=== PATIENT | male | born 1955 | race Caucasian/White ===

== ENCOUNTER 2023-01-26 07:01 | Day surgery (SDC) | payer MEDICARE, MEDICAID ==
[2023-01-23 17:12] LABS: BASOPHILS # (AUTO) 0.1 X10'3 (0-0.2); BASOPHILS % (AUTO) 0.7 % (0-1); EOSINOPHILS # (AUTO) 0.1 X10'3 (0-0.9); EOSINOPHILS % (AUTO) 1.7 % (0-6); LYMPHOCYTES # (AUTO) 2.3 X10'3 (1.1-4.8); LYMPHOCYTES % (AUTO) 29.9 % (21-51); MEAN CORPUSCULAR HEMOGLOBIN 33.6 PG (27.0-31.0); MEAN CORPUSCULAR HGB CONC 33.9 g/dL (33.0-36.5); MEAN PLATELET VOLUME 8.5 FL (7.4-10.4); MONOCYTES # (AUTO) 0.8 X10'3 (0-0.9); MONOCYTES % (AUTO) 9.9 % (2-12); NEUTROPHILS # (AUTO) 4.5 X10'3 (1.8-7.7); NEUTROPHILS % (AUTO) 57.8 % (42-75); PRE OP HEMATOCRIT 43.2 % (42.0-52.0); PRE OP HEMOGLOBIN 14.7 g/dL (14.0-17.9); PRE OP PLATELET COUNT 323 X10'3 (140-440); PRE OP WHITE BLOOD COUNT 7.7 10'3 (4.8-10.8); RED BLOOD COUNT 4.37 X10'6 (4.70-6.10)
[2023-01-23 17:26] LABS: ALBUMIN/GLOBULIN RATIO 1.1 (1.1-1.5); ALKALINE PHOSPHATASE 77 IU/L (46-116); BLOOD UREA NITROGEN 12 MG/DL (7-18); BUN/CREATININE RATIO 11.5 (10.0-20.0); CALCIUM 10.1 MG/DL (8.5-10.1); CHLORIDE 101 MMOL/L (99-107); CREATININE 1.04 MG/DL (0.60-1.10); PRE OP ALT 50 U/L (30-65); PRE OP ANION GAP 10 (8-16); PRE OP AST 29 U/L (10-37); PRE OP BILIRUB, TOTAL 0.3 MG/DL (0.0-1.0); PRE OP GLUCOSE 99 MG/DL (70-104); PRE OP SODIUM 137 MMOL/L (135-145); TOTAL CARBON DIOXIDE 25.9 MMOL/L (24-32); TOTAL PROTEIN 7.6 G/DL (6.4-8.2); eGFR 72 ML/MIN
[~2023-01-26] VITALS: Ht 193 cm; Wt 105.2 kg
[2023-01-26] VITALS (7 sets, daily range): BP systolic 140–177; BP diastolic 76–100; PULSE 62–81; RESP 11–16; TEMP 97.5; O2SAT 91–96
[~2023-01-26 07:01] MED LIST: BUPR-94 PO; FLO0.4C PO; FOLIC ACID; LANS15CA18 PO; LISI1TAB51 PO; VITAMIN B6; famotidine 20mg tablet PO ONE; ringers solution, lacted 1,000 ML IV SCH
[2023-01-26] MEDS ORDERED: epiNEPHrine 1 MG/ML 1 ml ampule **BRONCH ONLY ONE (07:08)
[2023-01-26] MEDS ORDERED: LIDOCAINE 4% (40MG/ML) topical solution 50ml **BRONCH ONLY ONE (07:09)
[2023-01-26] MEDS ORDERED: fentaNYL/PF 50MCG/1 ML 2ML syringe ONE (07:23)
[2023-01-26] MEDS ORDERED: MIDAZolam 1 MG/ML 5ML VIAL ONE (07:24)
[2023-01-26] MEDS ORDERED: LIDOcaine 2% (20mg/ml) 5ml vial ONE (07:27)
[2023-01-26] MEDS ORDERED: propofol inj 20 ML IV ONE ×2 (07:27)
[2023-01-26] MEDS ORDERED: morphine 2 MG/ML inj. syringe IV PRN (07:35)
[2023-01-26] MEDS ORDERED: labetalol 20mg/4ml (5mg/ml) syringe IV PRN (07:35)
[2023-01-26] MEDS ORDERED: ringers solution, lacted 1,000 ML IV SCH (07:35)
[2023-01-26] MEDS ORDERED: morphine 4 MG/ML inj SYRINge IV PRN (07:35)
[2023-01-26] MEDS ORDERED: ondansetron/PF 4mg/2ml inj IV PRN (07:35)
[2023-01-26] MEDS ORDERED: hydrALAZINE 20mg/ml inj. IV PRN (07:35)
[2023-01-26] MEDS ORDERED: sevoflurane 250ml liquid IH ONE (08:10)
[2023-01-26] MEDS ORDERED: PHENYLephrine 10mg/ml 5ml injection IV ONE (08:10)
[2023-01-26] MEDS ORDERED: dexamethasone sod phosphate 4mg/ml inj. ONE (09:36)
[2023-01-26] MEDS ORDERED: ondansetron/PF 4mg/2ml inj ONE (09:36)
[2023-01-26] MEDS ORDERED: rocuronium 10mg/ml inj IV ONE (09:36)
[2023-01-26] MEDS ORDERED: sugammadex 200mg/2ml injection IV ONE (09:37)
--- NOTE | 2023-01-26 09:53 | NUR ---
Received from OR via [facility], accompanied by Anesthesiologist and report given by JOHN Anesthesiologist. PATIENT A&OX4, DENIES PAIN, V/S WNL, SCD ON , PIV 20G LEFT HAND. Addendum: 01/26/23 at 1018 by Julius Ochoa RN Amended: Links added.
--- NOTE | 2023-01-26 10:28 | NUR ---
ALL DISCHARGE CRITERIA HAS BEEN MET. VSS, PAIN AT A TOLERABLE LEVEL, VOIDING AND ABLE TO SAFELY AMBULATE AND TRANSFER SELF. IV TAKEN OUT WITHOUT ANY COMPLICATIONS. ALL DISCHARGE INSTRUCTIONS COVERED WITH PATIENT AND ALL QUESTIONS ANSWERED. PATIENT TAKEN OUT VIA WHEELCHAIR WITH ALL BELONGINGS TO PERSONAL VEHICLE WHERE FRIEND DROVE PATIENT HOME. Addendum: 01/26/23 at 1033 by Julius Ochoa RN Amended: Links added.
== END 2023-01-26 10:28 | disposition home or self-care (01) ==
LOC: PAS 07:01
PROVIDERS: ATTEND Internal Medicine Critical Care Medicine
DX: R91.8 Other nonspecific abnormal finding of lung field (principal); J43.9 Emphysema, unspecified; K21.9 Gastro-esophageal reflux disease without esophagitis; M19.90 Unspecified osteoarthritis, unspecified site; F41.9 Anxiety disorder, unspecified; I10 Essential (primary) hypertension; E78.00 Pure hypercholesterolemia, unspecified; F32.A Depression, unspecified; N40.0 Benign prostatic hyperplasia without lower urinary tract symptoms; Z87.891 Personal history of nicotine dependence; Z79.899 Other long term (current) drug therapy; Z98.890 Other specified postprocedural states; Z88.1 Allergy status to other antibiotic agents; Z88.8 Allergy status to other drugs, medicaments and biological substances; Z87.01 Personal history of pneumonia (recurrent)
CPT/HCPCS: 31623; 31624; 31628; 31629; 31653; 36415; 71045; 71250; 80053; 82948; 85025; 87070; 93005; 94760; J1100; J2250; J2370; J2405; J2704; J3010; J3490; J7120; Z7506; Z7508; Z7512; 31622; 31625; 31627; 31652; 31654; A4618; J0171

== ENCOUNTER 2025-02-03 11:59 | Outpatient (CLI) | payer MEDICARE, MEDICAID ==
[~2025-02-03 11:59] MED LIST changes: -FLO0.4C PO; +TAMS-55 PO; -famotidine 20mg tablet PO ONE; -ringers solution, lacted 1,000 ML IV SCH
--- NOTE | 2025-02-03 14:22 | RADIOLOGY REPORT ---
EXAM: MR MRI LUMBAR SPINE CLINICAL HISTORY: OTHER LOW BACK PAIN COMPARISON: None TECHNIQUE: MRI imaging of the lumbar was performed on a MRI imaging system without intravenous contrast. FINDINGS GENERAL Multilevel disc degeneration. Alignment: Grade 1 retrolisthesis of L4 on L5. Vertebrae: Mild compression deformity of the L1 vertebral body with 20% height loss. Conus: Conus medullaris terminates at the L1 level. T12-L1: Disc desiccation. No spinal canal or neural foraminal stenosis. Facet arthrosis. L1-2: Disc desiccation. No spinal canal or neural foraminal stenosis. Facet arthrosis. L2-3: Disc desiccation and 5.5 mm disc bulge. Mild left subarticular zone stenosis. Mild bilateral foraminal stenosis. Facet arthrosis. L3-4: Disc desiccation and 8.55 mm disc bulge. Mild spinal canal stenosis. Moderate bilateral subarticular zone stenosis. Moderate right and mild left foraminal stenosis. Facet arthrosis. L4-5: Grade 1 retrolisthesis of L4 on L5 by 2.3 mm. Disc desiccation and 6.1 mm disc bulge. Mild spinal canal stenosis. Moderate bilateral subarticular zone stenosis. Mild bilateral foraminal stenosis. Facet arthrosis. L5-S1: Disc desiccation. Disc bulge with superimposed central disc protrusion measured 5.15 mm in radial dimension. No spinal canal or neural foraminal stenosis. Facet arthrosis. IMPRESSION: 1. Multilevel disc degeneration. Mild compression deformity of L1 with 20% height loss. Multilevel spinal canal stenosis, most pronounced and mild at L4- L5. Multilevel subarticular zone stenosis, most pronounced and moderate at L4- L5. Multilevel foraminal stenosis, most pronounced and moderate at L3-L4. Type 2 Modic changes at L4-L5 and L3-L4.
[2025-02-03] MEDS ORDERED: GADOTERATE MEGLUMINE 7.5 MMOL/15 ML VIAL IV ONE (14:24)
== END 2025-02-03 23:59 | disposition home or self-care (01) ==
LOC: MRI 11:59
PROVIDERS: ATTEND Nurse Practitioner Family
DX: M51.16 Intervertebral disc disorders with radiculopathy, lumbar region (principal); M54.59 Other low back pain; M48.061 Spinal stenosis, lumbar region without neurogenic claudication; M47.816 Spondylosis without myelopathy or radiculopathy, lumbar region
CPT/HCPCS: 72158; A9575